=== PATIENT | male | born 1945 | race Caucasian/White ===

== ENCOUNTER 2019-09-20 09:59 | Emergency (ER) | payer OTHER ==
[~2019-09-20] VITALS: Ht 177.8 cm; Wt 77.1 kg
[~2019-09-20 09:59] MED LIST: MOXI400T PO
[2019-09-20 10:00] VITALS: BP_SYST 138
--- NOTE | 2019-09-20 10:05 | NUR ---
BROUGHT BACK TO BED #8 AND TRIAGED. REPORT GIVEN TO HILARIO
--- NOTE | 2019-09-20 10:27 | NUR ---
Pt AAOx4 ambulated into ED c/o 04/09 pain to L neck radiating down L arm since this morning upon waking. Denies n/v/d/sob. Pt took aleve with no relief. Skin pink dry and warm, breathing even and unlabored. No other injuries/complaints per pt/noted. Will continue to monitor.
--- NOTE | 2019-09-20 10:40 | NUR ---
ER at bedside examining patient.
[2019-09-20] MEDS ORDERED: KETOROLAC TROMETHAMINE 60 MG/2 ML VIAL IM ONE (10:45)
[2019-09-20 11:54] VITALS: BP_SYST 127
--- NOTE | 2019-09-20 11:55 | NUR ---
Patient given written and verbal discharge instructions and verbalizes understanding. ER MD discussed with patient the results and treatment provided. Patient in stable condition. ID arm band removed. Rx of SOMA, TRAMADOL given. Patient educated on pain management and to follow up with PMD. Pain Scale 0/10. Opportunity for questions provided and answered. Medication side effect fact sheet provided.
== END 2019-09-20 11:55 | disposition home or self-care (01) ==
LOC: SED 09:59
DX: S16.1XXA Strain of muscle, fascia and tendon at neck level, initial encounter (principal); I10 Essential (primary) hypertension; Z88.0 Allergy status to penicillin; Z88.1 Allergy status to other antibiotic agents; Z79.899 Other long term (current) drug therapy; X58.XXXA Exposure to other specified factors, initial encounter; Y93.89 Activity, other specified; Y92.89 Other specified places as the place of occurrence of the external cause; Y99.8 Other external cause status
CPT/HCPCS: 72040-TC; 93005; 99283